=== PATIENT | female | born 1980 | race Caucasian/White ===

== ENCOUNTER 2024-05-24 21:20 | Inpatient (IN) | payer SELFPAY ==
[~2024-05-24] VITALS: Ht 172.7 cm; Wt 72.6 kg
[2024-05-24 21:48] VITALS: O2SAT 99
[2024-05-24] MEDS: SODIUM CHLORIDE 0.9% 1,000 ML IV ONE (22:15)
[2024-05-24 23:51] LABS: BASOPHILS % 1.1 % (0.0-2.0); EOSINOPHILS % 1.2 % (0.0-5.0); HEMATOCRIT. 35.9 % (36.0-48.0); HEMOGLOBIN. 11.3 g/dL (12.0-16.0); LYMPHOCYTES % 30.7 % (20.0-50.0); MEAN CORPUSCULAR HGB CONC 31.5 g/dL (31.0-37.0); MEAN CORPUSCULAR VOLUME 82.6 fL (81.0-99.0); MEAN PLATELET VOLUME 8.1 fl (7.4-10.4); MONOCYTES % 5.2 % (2.0-8.0); NEUTROPHILS % 61.8 % (40.0-76.0); PLATELET 399 x1000/uL (130-400); RED BLOOD CELL COUNT 4.34 mill/uL (4.2-5.4); RED CELL DISTRIBUTION WIDTH 18.1 % (11.6-14.6); WHITE BLOOD COUNT 8.3 x1000/uL (4.5-11.0)
[2024-05-24 23:56] LABS: CHLORIDE 107 mEq/L (98-107); SODIUM 138 mEq/L (136-145)
[2024-05-24 23:57] LABS: CARBON DIOXIDE 25 mEq/L (21-32)
[2024-05-24 23:58] LABS: CALCIUM 9.7 mg/dL (8.7-10.4)
[2024-05-25 00:02] LABS: CREATININE 0.7 mg/dL (0.6-1.0); GLUCOSE 99 mg/dL (70-105); UREA NITROGEN BLOOD 12 mg/dL (9-23)
[2024-05-25 00:07] LABS: HCG SCREEN NEGATIVE
[2024-05-25 00:09] LABS: TROPONIN I HIGH SENSITIVITY < 4 ng/L (3.0-34)
[2024-05-25 02:33] VITALS: BP 126/68; PULSE 63; RESP 18; TEMP 36.61404; O2SAT 100
[2024-05-25 03:31] LABS: TROPONIN I HIGH SENSITIVITY < 4 ng/L (3.0-34)
[2024-05-25] MEDS ORDERED: HYDROCODONE/ACETAMINOPHEN 5/325MG TABLET PO PRN (16:30)
[2024-05-25] MEDS ORDERED: NALOXONE HCL 0.4MG/ML VIAL IV PRN (16:30)
[2024-05-25 17:30] VITALS: BP 112/62; PULSE 68; RESP 18; TEMP 36.61404; O2SAT 100
[2024-05-25 19:49] VITALS: TEMP 97.9
[2024-05-25] MEDS: ACETAMINOPHEN 325MG TABLET PO PRN (19:49)
[2024-05-25] MEDS ORDERED: ONDANSETRON HCL 4MG/2ML INJ IV PRN (21:00)
[2024-05-26] MEDS ORDERED: ASPIRIN 81MG TABLET PO SCH (09:00)
== END 2024-05-25 21:07 | disposition left against medical advice (07) | DRG 111 ==
LOC: ER 21:33 → EDBEDREQ 22:45 → 5WST 05-25 00:24 → EDBEDREQ 05-25 00:26
PROVIDERS: ADMIT Internal Medicine; ATTEND Internal Medicine
DX: R42 Dizziness and giddiness (principal); E66.9 Obesity, unspecified; Z79.82 Long term (current) use of aspirin; Z68.24 Body mass index [BMI] 24.0-24.9, adult; Z53.29 Procedure and treatment not carried out because of patient's decision for other reasons
CPT/HCPCS: 36415; 71045; 80048; 84484; 84703; 85025; 99285; C1893; J7030